=== PATIENT | female | born 1985 | race Caucasian/White ===

== ENCOUNTER 2018-03-26 20:23 | Emergency (ER) | payer BC, SELFPAY ==
[2018-03-26] VITALS (14 sets, daily range): BP systolic 111–138; BP diastolic 61–78; PULSE 106–135; RESP 15–18; TEMP 37.1–37.4; O2SAT 97
--- NOTE | 2018-03-26 20:50 | ED.GENADUL_ITS ---
Discharge Plan Disposition Condition: Good Discharge Details Chief Complaint: Anxiety Clinical Impression: Anxiety attack, Hypocalcemia Primary Care Provider: Tera Danielson ED Provider: Ruben Parry Home Meds and New Rx's Prescriptions: No Action cetirizine [Zyrtec] 10 MG capsule 10 mg PO HS Qty: 1 RF: 0 hydroxyzine pamoate 50 mg Capsule RF: 0 Discharge Instructions Instructions: Anxiety (ED) Additional Instructions: Please avoid taking CBD oil and hydroxyzine together. Please take over-the- counter calcium supplements on a daily basis for the next month. If you notice any worsening of your symptoms, or any new symptoms such as vomiting, diarrhea, fever, chills, shortness of breath, chest pain, numbness, weakness, or fainting , please return immediately to the emergency department for reevaluation. Please follow up with your primary care provider as soon as possible for reassessment and reevaluation. As always, it was a pleasure participating in your medical care today. Referrals: Tera Danielson [Primary Care Provider] - Medical Decision Making This is a pleasant 32-year-old female with a past medical history of notable anxiety, who presents today for an odd combination of a panic attack with some fogginess of her mind. Patient took CBD oil earlier today anticipating developing a panic attack when she went out to dinner with her , however she did develop a panic attack during dinner went home and took hydroxyzine. Since then she has felt very hazy, and slightly drunk. She has never taken the hydroxyzine and CBD oil together before. Physical exam demonstrates mild tachycardia, but no other significant abnormalities. She denies any significant pleuritic chest pain or red flags of long trips, family history of DVT or PE, other abnormalities. Her symptoms including her palpitations came on during her episode at dinner which correlates with her strong history of panic and anxiety. Especially her history of agoraphobia. Patient shows no signs of hypoxemia or tachypnea or respiratory distress. This time we will rehydrate the patient, observe her, and initially avoid any benzodiazepines secondary to the hydroxyzine CBD oil combination that has already caused her to be slightly foggy in the mind. EKG 20: 58 Rate 106, intervals normal, sinus tachycardia, no signs of right heart strain, no S1 Q3 T3, no ST elevations or depressions. No T wave inversions. CXR IMPRESSION: No acute findings. 11:11 PM Patient has been rehydrated. While she is sitting in her bed resting her heart rate dips to the 90s and low 100s and demonstrates no signs of cardiac instability. She will increase slightly when discussing topics of anxiety inducing things. Patient was reassessed and she appears to be resting comfortably in bed, I had a long discussion with the patient and her and the feels that her signs and symptoms are consistent with her history of anxiety attacks. However the patient states that she is worried she might be having #1 heart attack. I discussed with her how she is extremely unlikely to be having a cardiac condition especially in light of her low risk group status and her normal history. However the patient has persistent that her mother had a heart attack and although her mother is 30 years old the patient is worried she might have one. Patient requested that we perform a workup to evaluate for any other acute process. Although I feel it unlikely there is acute organic pathology feel that this is reasonable. Laboratory workup was ordered and she demonstrates mild hypo-Nicolas C Kim, but no white count , no bandemia, normal electrolytes otherwise, normal creatinine, negative troponin negative TSH and a negative d-dimer. Chest x-ray was performed and is also negative. No other acute process. With a benign workup, and a heart rate that continues to be in the high 90s to low 100s while resting I feel that she can be safely discharged. I feel her signs and symptoms are clinically consistent with her anxiety, and inconsistent with acute cardiac or pulmonary etiology. I had a long discussion with the patient and the regarding discharge home, no safety there. and both feel that they can be adequately cared for at home. We discussed red flags which to return and they understand. I have extensively reviewed the treatment plan and discharge instructions with the patient and their family. I have addressed all patient concerns at this time. The patient and family was made aware of what symptoms to monitor for that would warrant a return to the emergency department. Discussed the plan with the patient and family, they demonstrate verbal understanding and agreement with our assessment and plan at this time. HPI General Date/Time Provider Initiated Documentation: 03/26/18 20:36 . HPI Narrative: This is a 32-year-old female with a past medical history of anxiety attacks, who presents today for an anxiety attack. Patient states that she and her were going to go out to dinner tonight, and so preemptively anticipating an anxiety inducing event she took CBD oil prior to leaving at 4 PM. While going out to dinner the patient and her got an argument patient developed a panic attack. She went home and took hydroxyzine, after which point she felt very anxious, as well as feeling intoxicated and very drowsy in the head. She did not have any alcohol or illicit drugs while out to dinner. She only took 1 pill of the hydroxyzine, denies any other coingestants. She denies any associated symptoms of significant headache, vision changes, severe chest pain, severe shortness of breath, numbness tingling or weakness. Denies PE risk factors such as recent long car rides, immobilization, recent surgery, prior history of DVT or PE, family history of PE or DVT, morbid obesity, and smoking, hemoptysis, history of cancer. She does have the Mirena device but has had this for years. She states that her signs and symptoms of anxiety are certainly consistent with her previous episodes however the drowsiness and fogginess of her mind is atypical. She has never taking cannabis and hydroxyzine together. Patient denies any other modifying factors. She denies any other complaints at this time. Related Data Home Medications Medication Instructions Recorded Confirmed cetirizine [Zyrtec] 10 mg PO HS #1 04/13/13 03/26/18 hydroxyzine pamoate 03/26/18 Allergies Allergy/AdvReac Type Severity Reaction Status Date / Time No Known Allergies Allergy Unverified 03/26/18 20:47 General Stated Complaint: Anxiety DANIELITO: 4 Review of Systems Review of Systems All systems reviewed & are unremarkable except as noted in HPI and below PFSH Social History Smoking/Tobacco Use Status: Never Exam Narrative Exam Narrative: 1.Const: Well-nourished, Well-developed, appearing stated age 2.Eyes: PERRL, no conjunctival injection, and symmetrical lids. 3.ENT: Atraumatic external nose and ears. Moist MM. Neck: Symmetric, trachea midline, No thyromegaly. 4.CVS: +S1/S2, tachycardic no murmurs or gallops. Peripheral pulses 2+ and equal in all extremities. Brisk capillary refill in all extremities. 5.RESP: Unlabored respiratory effort. Clear to auscultation bilaterally. No wheezes rales or rhonchi 6.GI: Soft, Nontender/Nondistended, No hepatosplenomegaly. No guarding or rebound. 7.MSK: Normocephalic/Atraumatic, Extremities w/o deformity or ttp No cyanosis or clubbing, Normal movement of all extremities, no calf tenderness. 8.Skin: Warm, Dry. No rashes or lesions. 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 Sensation grossly intact, no focal neurologic deficits. 10.Psych: (AAO) x3. Appropriate mood and affect, patient demonstrates a normal mental status, no signs of gross intoxication, she responds appropriately to all questions. She does appear anxious though on exam. Course Vital Signs Temperature 37.1 C 03/26/18 20:26 Pulse 135 H 03/26/18 20:26 Respiratory Rate 15 03/26/18 20:26 Blood Pressure 138/78 03/26/18 20:26 Temperature 37.1 C 03/26/18 20:26 Temperature Source Skin 03/26/18 20:26 Pulse 135 H 03/26/18 20:26 Respiratory Rate 15 03/26/18 20:26 Blood Pressure 138/78 03/26/18 20:26 Blood Pressure Position Sitting 03/26/18 20:26 Oxygen Delivery Method Room Air 03/26/18 20:26 Oxygen Flow Rate 0 03/26/18 20:26
[2018-03-26] MEDS: Normal Saline 1,000 ML 1000 ML IV ×2 (21:05→21:55)
--- NOTE | 2018-03-26 22:01 | DI.RAD_ITS ---
SYMPTOM/DIAGNOSIS: SOB PORTABLE AP CHEST: The heart is not enlarged. The lungs are clear and well expanded. CONCLUSION: No evidence of acute disease.
[2018-03-26 22:21] LABS: Abs Immature Grans 0.01 k/cumm (0.0-0.09); Absolute Basophil Count 0.03 k/cumm (0.0-0.2); Absolute Eosinophil Count 0.08 k/cumm (0.0-0.7); Absolute Lymphocyte Count 1.04 k/cumm (1.2-3.4); Absolute Monocyte Count 0.44 k/cumm (0.11-0.7); Absolute Neutrophil Count 5.63 k/cumm (1.2-6.7); Basophils % 0.4; Eosinophils % 1.1; HCT 35.4 % (36.0-46.0); HGB 12.4 g/dL (12.0-15.5); Immature Grans % 0.1; Lymphocytes % 14.4; Mean Corpuscular Volume 88.5 fL (80-95); Mean Platelet Volume 9.2 fL (8.0-11.0); Monocytes % 6.1; Neutrophils % 77.9; Platelet Count 278 x1000/uL (130-400); RBC Distribution Width 12.2 % (11.7-14.6); White Blood Cell Count 7.23 k/cumm (4.4-10.8)
[2018-03-26 22:40] LABS: ALT 19 U/L (12-78); AST 13 U/L (15-37); Albumin 3.5 g/dL (3.4-5.0); Alkaline Phosphatase 64 U/L (46-116); Anion Gap 7.7 mmol/L (3-11); BUN 12 mg/dL (7-18); Bilirubin, Total 0.2 mg/dL (0.2-1.0); CO2 25.3 mmol/L (21.0-32.0); CREATININE 0.61 mg/dL (0.55-1.02); Calcium 7.7 mg/dL (8.5-10.1); Chloride 106 mmol/L (98-107); Glucose 110 mg/dL (70-100); Potassium 3.5 mmol/L (3.5-5.1); Sodium 139 mmol/L (136-145); TSH 0.57 uIU/mL (0.358-3.74); Total Protein 6.5 g/dL (6.4-8.2)
[2018-03-26 22:43] LABS: Troponin I < 0.02 ng/mL (0.00-0.06)
--- NOTE | 2018-03-26 22:47 | DI.VRAD_ITS ---
EXAM: XR Chest, 1 View EXAM DATE/TIME: 03/26/2018 10:02 PM CLINICAL HISTORY: 32 years old, female; Signs and symptoms; Shortness of breath TECHNIQUE: XR of the chest, 1 view. COMPARISON: No relevant prior studies available. FINDINGS: Lungs: Unremarkable. No consolidation. Pleural space: Unremarkable. No pleural effusion. No pneumothorax. Heart/Mediastinum: Unremarkable. No cardiomegaly. Bones/joints: Unremarkable. IMPRESSION: No acute findings. Dictated and Authenticated by: Stuart Dotson MD. Ordering:ROSINA BROOKS MD
[2018-03-26 22:55] LABS: D-Dimer 150 ng/mlFEU (<500)
== END 2018-03-26 23:12 ==
PROVIDERS: Emergency Provider Student in an Organized Health Care Education/Training Program; PCP Family Medicine
DX: F40.01 Agoraphobia with panic disorder (principal); E83.51 Hypocalcemia; R00.0 Tachycardia, unspecified
CPT/HCPCS: 36415; 80053; 81025; 93005; 96360; 96361; 99285; 71045; 84443; 84484; 85025; 85379; 93010; 99284

== ENCOUNTER 2018-07-16 16:09 | Outpatient (CLI) | payer BC, SELFPAY ==
[2018-07-16 18:35] LABS: Vitamin B12 517 pg/mL (193-986)
== END 2018-07-16 16:29 ==
PROVIDERS: PCP Family Medicine; Visit Provider Family Medicine
DX: R53.83 Other fatigue (principal)
CPT/HCPCS: 36415; 82607

== ENCOUNTER 2018-09-15 16:09 | Outpatient (CLI) | payer BC, SELFPAY ==
[2018-09-15 17:22] LABS: Abs Immature Grans 0.02 k/cumm (0.0-0.09); Absolute Basophil Count 0.03 k/cumm (0.0-0.2); Absolute Eosinophil Count 0.28 k/cumm (0.0-0.7); Absolute Lymphocyte Count 1.98 k/cumm (1.2-3.4); Absolute Monocyte Count 0.38 k/cumm (0.11-0.7); Absolute Neutrophil Count 4.15 k/cumm (1.2-6.7); Basophils % 0.4; Eosinophils % 4.1; HGB 13.9 g/dL (12.0-15.5); Immature Grans % 0.3; Lymphocytes % 28.9; Mean Corp. HGB Concentration 34.8 g/dL (32.0-36.0); Mean Corpuscular Hemoglobin 30.8 pg (27.0-33.0); Mean Corpuscular Volume 88.7 fL (80-95); Mean Platelet Volume 9.2 fL (8.0-11.0); Monocytes % 5.6; Neutrophils % 60.7; Platelet Count 318 x1000/uL (130-400); RBC 4.51 m/cumm (4.00-5.20); RBC Distribution Width 12.5 % (11.7-14.6); White Blood Cell Count 6.84 k/cumm (4.4-10.8)
[2018-09-15 19:04] LABS: Iron 51 ug/dL (50-175); Total Iron Binding Capacity 319 ug/dL (250-450); Transferrin Sat 16 % (15-50)
[2018-09-15 19:38] LABS: ALT 24 U/L (12-78); AST 16 U/L (15-37); Albumin 4.3 g/dL (3.4-5.0); Alkaline Phosphatase 79 U/L (46-116); Anion Gap 7.8 mmol/L (3-11); BUN 10 mg/dL (7-18); Bilirubin, Total 0.4 mg/dL (0.2-1.0); CO2 30.2 mmol/L (21.0-32.0); CREATININE 0.62 mg/dL (0.55-1.02); Calcium 8.9 mg/dL (8.5-10.1); Chloride 102 mmol/L (98-107); Cholesterol 194 mg/dL (50-200); Glucose 76 mg/dL (70-100); HDL Cholesterol 46 mg/dL (40-60); LDL CHOLESTEROL 126 mg/dL (<100); Magnesium 1.9 mg/dL (1.8-2.4); Potassium 3.4 mmol/L (3.5-5.1); Sodium 140 mmol/L (136-145); TSH 0.98 uIU/mL (0.358-3.74); Total Protein 7.8 g/dL (6.4-8.2); Triglyceride 209 mg/dL (30-150); Vitamin B12 471 pg/mL (193-986)
[2018-09-15 20:10] LABS: Folate > 20.0 ng/mL (8.6-20.0)
[2018-09-15 21:02] LABS: FREE T4 1.01 ng/dL (0.76-1.46)
[2018-09-16 06:34] LABS: Vitamin D 25 Total 8.6 ng/ml (30-100)
[2018-09-16 16:44] LABS: T3,Free 4.1 pg/ml (2.8-5.3)
[2018-09-17 09:09] LABS: Thyroglobulin Antibody 20 U/mL (<61); Thyroperoxidase Antibody <28 U/mL (<61)
[2018-09-17 10:37] LABS: C4 Complement 33 mg/dL (13-39)
[2018-09-17 10:56] LABS: IgA 107 mg/dL (85-499); IgG 1249 mg/dL (610-1616); IgM 115 mg/dL (35-242)
[2018-09-17 15:00] LABS: Copper, Serum 1.06 mcg/mL (0.75-1.45)
[2018-09-17 17:26] LABS: EBNA IgG Positive; EBV Interpretation SEE COMMENTS; VCA IgG Positive; VCA IgM Negative
[2018-09-20 16:06] LABS: Methylenetetrahydrofol Reduc M Negative (Negative)
[2018-09-22 18:55] LABS: Histamine Plasma 0.49 ng/mL (0-1.0)
== END 2018-09-15 16:29 ==
PROVIDERS: PCP Family Medicine; Visit Provider Naturopath
DX: F41.9 Anxiety disorder, unspecified (principal); J30.2 Other seasonal allergic rhinitis; R53.83 Other fatigue; R09.81 Nasal congestion; R51 Headache; Z77.120 Contact with and (suspected) exposure to mold (toxic); Z82.49 Family history of ischemic heart disease and other diseases of the circulatory system
CPT/HCPCS: 36415; 80053; 80061; 82306; 82784; 83090; 83695; 83721; 86001; 86376; 81291; 82525; 82607; 82746; 83088; 83540; 83550; 83735; 84207; 84439; 84443; 84481; 85025; 86160; 86664; 86665

== ENCOUNTER 2021-08-06 03:15 | Outpatient (CLI) | payer BC, SELFPAY | END 2021-08-06 03:16 | disposition home or self-care (01) | LOC: LBO 03:15 | PROVIDERS: PCP Family Medicine; Visit Provider Family Medicine ==

== ENCOUNTER 2021-08-16 02:32 | Outpatient (CLI) | payer BC, SELFPAY ==
[2021-08-16 08:11] LABS: Abs Immature Grans 0.01 10^3/uL (0.0-0.06); Absolute Basophil Count 0.05 10^3/uL (0.0-0.2); Absolute Eosinophil Count 0.39 10^3/uL (0.0-0.7); Absolute Lymphocyte Count 1.61 10^3/uL (1.2-3.4); Absolute Monocyte Count 0.39 10^3/uL (0.1-0.8); Absolute Neutrophil Count 2.73 10^3/uL (1.2-6.7); Eosinophils % 7.5; HCT 39.1 % (36.0-46.0); HGB 13.1 g/dL (11.2-15.7); Immature Grans % 0.2; Lymphocytes % 31.1; MCH 29.9 pg (27.0-33.0); MCHC 33.5 % (32.0-36.0); MCV 89.3 fL (80-95); MPV 8.7 fL (8.0-11.0); Monocytes % 7.5; Neutrophils % 52.7; Nucleated RBC 0 %; Platelet Count 310 10^3/uL (130-400); RBC 4.38 10^6/uL (3.93-5.22); RDW 12.1 % (11.7-14.6); RDW-SD 39.5 fL; WBC 5.18 10^3/uL (4.4-10.8)
[2021-08-16 09:35] LABS: Hemoglobin A1C 5.7 % (<5.7)
[2021-08-16 09:41] LABS: ALT 29 U/L (14-59); AST 18 U/L (15-37); Albumin 3.9 g/dL (3.4-5.0); Alkaline Phosphatase 83 U/L (46-116); Anion Gap 7.7 mmol/L (3-11); BUN 11 mg/dL (7-18); Bilirubin, Total 0.5 mg/dL (0.2-1.0); CO2 26.3 mmol/L (21.0-32.0); CREATININE 0.7 mg/dL (0.55-1.02); Calcium 8.6 mg/dL (8.5-10.1); Chloride 105 mmol/L (98-107); Glucose 100 mg/dL (74-106); Potassium 3.7 mmol/L (3.5-5.1); Sodium 139 mmol/L (136-145); TSH (W/Ref FT4) 0.74 uIU/mL (0.36-3.74)
== END 2021-08-16 02:33 | disposition home or self-care (01) ==
LOC: LBO 02:32
PROVIDERS: PCP Family Medicine; Visit Provider Family Medicine
DX: R00.2 Palpitations (principal)
CPT/HCPCS: 36415; 80053; 83036; 84443; 85025

== ENCOUNTER 2024-05-20 00:27 | Outpatient (CLI) | payer OTHER, SELFPAY ==
--- NOTE | 2024-05-20 | DI.MAMMO_ITS ---
Exam(s) MAMMO SCREENING EXAM: MAMMO SCREENING CLINICAL HISTORY: Z12.31 Screening TECHNIQUE: Bilateral full field digital CC and MLO mammographic images were obtained with 3D tomosyn thesis and utilizing computer aided detection (CAD). COMPARISON: This is a baseline examination. FINDINGS: Masses/Architectural Distortion: No suspicious masses are seen. No areas of architectural distortion are present. Microcalcifications: No suspicious pleomorphic-type are seen. Skin Thickening/Nipple Retraction: None. IMPRESSION: 1. There is no evidence of malignancy at this time. 2. Unless there is more urgent need, screening mammography is recommended, as per [employer] guidelines. BI-RADS Category 1 - Negative Breast Density - Category C - Heterogeneously dense Breast density category C or D implies that the patient has dense breast tissue. Dense breast tissue is very common and is not abnormal but dense breast tissue can make it harder to find cancer on a ma mmogram. Also, dense breast tissue may increase their breast cancer risk. This information about the result of the mammogram report was provided to the patient to raise their awareness. Use this report when you speak with the patient about their risks for breast cancer, which includes their family hist ory. At that time, you may recommend for more screening tests (Ultrasound or MRI) as they might be us eful based on their risk. A negative radiographic report should not delay biopsy if a dominant or clinically suspicious mass is present. Up to ten percent of cancers are not identified on mammography. A negative report may reinforce clinical impression. Adenosis and dense breasts may obscure an underlying neoplasm. False positive reports average 6 to 10%. Patient will receive a letter notifying them of these results.
== END 2024-05-20 00:47 ==
LOC: DI 00:27
PROVIDERS: PCP Family Medicine; Visit Provider Family Medicine
DX: Z12.31 Encounter for screening mammogram for malignant neoplasm of breast (principal); R92.333 Mammographic heterogeneous density, bilateral breasts
CPT/HCPCS: 77063; 77067